=== PATIENT | female | born 1960 | race Caucasian/White ===

== ENCOUNTER 2017-07-01 22:48 | Emergency (ER) | payer MEDICAID ==
[~2017-07-01] VITALS: Ht 165.1 cm; Wt 65.8 kg
[2017-07-01 23:23] LABS: BASOPHIL % 0.7 % (0-2); PLATELET COUNT 311 x10^3mcL (130-400); RED CELL DISTRIBUTION WIDTH 13.2 % (11.5-14.5)
[2017-07-01 23:32] LABS: CALCIUM 8.8 mg/dL (8.5-10.1); CHLORIDE SERUM 105 mmol/L (98-107); CREATININE SERUM 0.8 mg/dL (0.6-1.0); GFR1 > 60 mL/min; GLUCOSE SERUM 134 mg/dL (74-106); POTASSIUM SERUM 3.1 mmol/L (3.5-5.1); SODIUM SERUM 142 mmol/L (136-145)
[2017-07-01 23:38] LABS: ALKALINE PHOSPHATASE 74 U/L (46-116); ALT/SGPT 17 U/L (14-59); AST/SGOT 15 U/L (15-37); BILIRUBIN TOTAL 0.4 mg/dL (0.20-1.00); LIPASE 103 IU/L (73-393); TOTAL PROTEIN, SERUM 6.3 g/dL (6.4-8.2)
[2017-07-01 23:42] LABS: ALBUMIN 3.3 g/dL (3.4-5.0); AMYLASE 22 U/L (25-115)
[2017-07-02 02:13] VITALS: BP 110/71
== END 2017-07-02 02:13 | disposition home or self-care (01) ==
LOC: ED 22:48
PROVIDERS: Emergency Medicine Emergency Medical Services
DX: K44.9 Diaphragmatic hernia without obstruction or gangrene (principal); K21.9 Gastro-esophageal reflux disease without esophagitis; Z88.0 Allergy status to penicillin; Z88.2 Allergy status to sulfonamides
CPT/HCPCS: J2270; J2405; J3490

== ENCOUNTER 2017-07-13 12:30 | Inpatient (IN) | payer MEDICAID ==
[~2017-07-13] VITALS: Ht 165.1 cm; Wt 66.0 kg
[2017-07-13 13:22] LABS: microscopic required? YES; urine erythrocyte TRACE (NEGATIVE)
[2017-07-13 13:27] LABS: BASOPHIL % 0.7 % (0-2); PLATELET COUNT 274 x10^3mcL (130-400); RED CELL DISTRIBUTION WIDTH 13.2 % (11.5-14.5)
[2017-07-13 13:30] LABS: CALCIUM 8.5 mg/dL (8.5-10.1); CHLORIDE SERUM 107 mmol/L (98-107); CREATININE SERUM 0.7 mg/dL (0.6-1.0); GFR1 > 60 mL/min; GLUCOSE SERUM 99 mg/dL (74-106); POTASSIUM SERUM 3.4 mmol/L (3.5-5.1); SODIUM SERUM 142 mmol/L (136-145)
[2017-07-13 13:31] LABS: AMPHETAMINE QUAL UR POSITIVE (NEG <=1000)
[2017-07-13 13:34] LABS: ALBUMIN 3.4 g/dL (3.4-5.0); ALKALINE PHOSPHATASE 80 U/L (46-116); ALT/SGPT 18 U/L (14-59); AMYLASE 24 U/L (25-115); AST/SGOT 12 U/L (15-37); BILIRUBIN TOTAL 0.5 mg/dL (0.20-1.00); LIPASE 107 IU/L (73-393); TOTAL PROTEIN, SERUM 6.7 g/dL (6.4-8.2)
[2017-07-13 14:41] VITALS: BP 113/61
[2017-07-13 16:29] LABS: CHOLESTEROL/HDL RATIO 3.2
[2017-07-13 16:33] LABS: T3 TOTAL 1.14 ng/mL
[2017-07-13 16:54] LABS: FREE T4 1.17 ng/dL (0.76-1.46); FREE THYROXINE INDEX 3.4 ug/dL (1.4-4.5); T4(THYROXINE) 9.1 ug/dL (4.7-13.3)
[2017-07-13 17:38] VITALS: BP 101/60
[2017-07-14 06:19] VITALS: BP 93/54
[2017-07-14 07:00] LABS: CALCIUM 8.3 mg/dL (8.5-10.1); CARBON DIOXIDE 29.6 mmol/L (21-32); CHLORIDE SERUM 109 mmol/L (98-107); CREATININE SERUM 0.7 mg/dL (0.6-1.0); GFR1 > 60 mL/min; GLUCOSE SERUM 93 mg/dL (74-106); MAGNESIUM 1.8 mg/dL (1.8-2.4); PHOSPHOROUS 3.3 mg/dL (2.5-4.9); POTASSIUM SERUM 4.1 mmol/L (3.5-5.1); SODIUM SERUM 142 mmol/L (136-145)
[2017-07-14 07:06] LABS: BASOPHIL % 0.6 % (0-2); PLATELET COUNT 219 x10^3mcL (130-400); RED CELL DISTRIBUTION WIDTH 13.4 % (11.5-14.5)
[2017-07-14 08:42] VITALS: BP 97/61
[2017-07-14] MEDS ORDERED: NIC14 TD (13:40)
[2017-07-14] MEDS ORDERED: PRI20 PO (13:41)
[2017-07-14 13:59] VITALS: BP 97/61
== END 2017-07-14 14:31 | disposition home or self-care (01) | DRG 254 ==
LOC: ED 12:30 → DU 13:41
PROVIDERS: Emergency Medicine; ADMIT Family Medicine
DX: K44.9 Diaphragmatic hernia without obstruction or gangrene (principal); F15.10 Other stimulant abuse, uncomplicated; E78.5 Hyperlipidemia, unspecified; R31.29 Other microscopic hematuria; E87.6 Hypokalemia; F17.200 Nicotine dependence, unspecified, uncomplicated; Z59.0 Homelessness; Z91.14 Patient's other noncompliance with medication regimen; Z68.24 Body mass index [BMI] 24.0-24.9, adult
CPT/HCPCS: 83880; 84439; G0480; J1885; J2270; J2405; J3480; J7030; Q9967